=== PATIENT | female | born 1975 | race African-American/Black ===

== ENCOUNTER 2019-08-03 12:02 | Emergency (ER) | payer MEDICAID ==
[~2019-08-03] VITALS: Ht 160 cm; Wt 73.0 kg
[2019-08-03 12:47] VITALS: BP 121/89
[2019-08-03] MEDS ORDERED: KETOROLAC 60MG/2ML VIAL IM ONE (13:15)
[2019-08-03] MEDS ORDERED: DEXAMETHASONE 4MG/ML 1ML VIAL IM ONE (13:15)
[2019-08-03] MEDS ORDERED: OXYCODONE HCL/ACETAMINOPHEN 5/325MG TABLET PO ONE (13:15)
[2019-08-03] MEDS ORDERED: KETOROLAC 30MG/ML VIAL IM ONE (14:15)
== END 2019-08-03 14:13 | disposition home or self-care (01) ==
LOC: ER 12:02
DX: S16.1XXA Strain of muscle, fascia and tendon at neck level, initial encounter (principal); X58.XXXA Exposure to other specified factors, initial encounter; Y93.89 Activity, other specified; Y92.018 Other place in single-family (private) house as the place of occurrence of the external cause
CPT/HCPCS: 72040; 96372; 99283; J1100; J1885

== ENCOUNTER 2021-09-29 12:40 | Day surgery (SDC) | payer OTHER ==
[~2021-09-29] VITALS: Ht 160 cm; Wt 76.0 kg
[2021-09-29] MEDS ORDERED: SODIUM CHLORIDE 0.9% 1,000 ML IV ONE (13:00)
[2021-09-29 13:36] LABS: BASOPHILS % 0.4 % (0.0-2.0); EOSINOPHILS % 2.7 % (0.0-5.0); HEMATOCRIT. 29.1 % (36.0-48.0); HEMOGLOBIN. 9.5 g/dL (12.0-16.0); MEAN CORPUSCULAR VOLUME 61.1 fL (81.0-99.0); MEAN PLATELET VOLUME 8.5 fl (7.4-10.4); MONOCYTES % 6.7 % (2.0-8.0); NEUTROPHILS % 74.2 % (40.0-76.0); PLATELET 454 x1000/uL (130-400); RED BLOOD CELL COUNT 4.76 mill/uL (4.2-5.4); RED CELL DISTRIBUTION WIDTH 17.8 % (11.6-14.6)
[2021-09-29 13:38] LABS: BG BASE EXCESS -2.5 mmol/L (-2.0-2.0); BG CARBOXYHEMOGLOBIN 0.3 % (0.5-1.5); BG DEOXYHEMOGLOBIN 3.3 % (0.0-5.0); BG FRACTION INSPIRED OXYGEN 21; BG METHEMOGLOBIN 0.3 % (0.0-1.5); BG OXYGEN SATURATION 96.7 % (92.0-98.5); BG OXYHEMOGLOBIN 96.1 % (94.0-97.0); BG PCO2 31.5 mmHg (35.0-45.0); BG PH 7.442 (7.350-7.450); BG PO2 87.3 mmHg (75.0-100.0); BG SAMPLE SITE LEFT RADIAL; BG TOTAL HEMOGLOBIN 9.7 g/dL (12.0-18.0); BG VENT MODE ROOM AIR
[2021-09-29 13:42] LABS: TOTAL IRON BINDING CAPACITY 443 ug/dL (250-450)
[2021-09-29 13:43] LABS: CHLORIDE 110 mEq/L (98-107)
[2021-09-29 13:46] LABS: PARTIAL THROMBOPLASTIN TIME 26.9 sec (23.4-31.0)
[2021-09-29 13:50] LABS: HCG SCREEN NEGATIVE
[2021-09-29 13:58] LABS: PLATELET ESTIMATE SLIGHTLY INCREASED
[2021-09-29] MEDS ORDERED: ACETAMINOPHEN 650MG SUPP PR PRN (14:30)
[2021-09-29] MEDS ORDERED: SODIUM CHLORIDE 0.9% 1,000 ML IV SCH (14:30)
[2021-09-29] MEDS ORDERED: ONDANSETRON HCL 4MG/2ML INJ IV PRN ×2 (14:30→16:30)
[2021-09-29] MEDS ORDERED: ONDANSETRON HCL 4MG/2ML INJ IV STA (14:32)
[2021-09-29] MEDS ORDERED: MORPHINE SULFATE 4 MG/ML CPJ (NOT FOR IM USE) IV STA (14:32)
[2021-09-29] MEDS ORDERED: PROPOFOL 200MG/20ML VIAL IV ONE (15:46)
[2021-09-29] MEDS ORDERED: ONDANSETRON HCL 4MG/2ML INJ ONE (15:47)
[2021-09-29] MEDS ORDERED: LIDOCAINE HCL 1% 20ML VIAL (Pyxis) INJ ONE (15:47)
[2021-09-29] MEDS ORDERED: DEXAMETHASONE 4MG/ML 1ML VIAL ONE (15:47)
[2021-09-29] MEDS ORDERED: SUCCINYLCHOLINE CHLORIDE 200MG/10ML IV ONE (15:47)
[2021-09-29] MEDS ORDERED: SODIUM CHLORIDE 0.9% 10ML VIAL ONE (15:47)
[2021-09-29] MEDS ORDERED: MIDAZOLAM HCL 2 MG/2 ML VIAL ONE (15:48)
[2021-09-29] MEDS ORDERED: FENTANYL CITRATE/PF 50MCG/ML 2ML VIAL ONE ×2 (16:12→17:56)
[2021-09-29] MEDS ORDERED: IBUP-2029 MT (16:26)
[2021-09-29] MEDS ORDERED: MULT-1116 MT (16:26)
[2021-09-29] MEDS ORDERED: FERR325T6 MT (16:26)
[2021-09-29] MEDS ORDERED: KETOROLAC 30MG/ML VIAL IV ONE (16:30)
[2021-09-29] MEDS ORDERED: ACETAMINOPHEN 325MG TABLET PO PRN (16:30)
[2021-09-29] MEDS ORDERED: KETOROLAC 30MG/ML VIAL IV NR (16:45)
[2021-09-29] MEDS ORDERED: FENTANYL CITRATE/PF 50MCG/ML 2ML VIAL IV PRN (16:45)
[2021-09-29 17:59] VITALS: BP 117/66
[2021-09-29] MEDS ORDERED: DEXT 5%/0.45% NACL KCL 20MEQ/L 1,000 ML IV SCH (18:30)
== END 2021-09-29 19:30 | disposition home or self-care (01) ==
LOC: ER 12:58 → EDSTATUS 13:22 → OR 15:45 → ER 17:11 → OR 19:30 → CANBEDREQ 09-30 20:57
PROVIDERS: ATTEND Specialist
DX: N92.0 Excessive and frequent menstruation with regular cycle (principal); R79.9 Abnormal finding of blood chemistry, unspecified; D25.9 Leiomyoma of uterus, unspecified; D64.9 Anemia, unspecified; Z79.899 Other long term (current) drug therapy; Z98.890 Other specified postprocedural states; Z20.822 Contact with and (suspected) exposure to COVID-19; Z79.01 Long term (current) use of anticoagulants
CPT/HCPCS: 36415; 36600; 58120; 76830; 76856; 80053; 82375; 82805; 83540; 83550; 84703; 85025; 85044; 85610; 85730; 86850; 86900; 86901; 86920; 87426; 88305; 93005; 96361; 96374; 96375; 96376; 99291; J0330; J1100; J1885; J2250; J2270; J2405; J2704; J3010; J3490; J7030